=== PATIENT | male | born 1955 | race Caucasian/White ===

== ENCOUNTER 2019-07-12 08:26 | Outpatient (CLI) | payer MEDICARE, SELFPAY ==
--- NOTE | ~2019-07-12 | CT_ITS ---
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 The dose-length product (DLP) was 528.27 mGy-cm. Automated exposure control and iterative reconstruction technique were employed. COMPARISON: 03/19/2019 FINDINGS: CHEST CT: There is moderate emphysema. The lungs are free of acute opacities. There is no pleural effusion or t horax. Mild dependent atelectasis is noted. Calcified pulmonary nodules are consistent with old granu lomatous disease. A right internal jugular Port-A-Cath has been inserted which ends with its tip in t he distal superior vena cava. No pathologically enlarged thoracic lymph nodes are identified. The hea rt size is normal. There is no pleural effusion or pneumothorax. ABDOMEN/PELVIS CT: There is persistent but improved wall thickening of the distal esophagus. Multiple liver metastases a re present which demonstrates slight decrease in size. Gastrohepatic ligament lymphadenopathy has als o improved. For instance, a 1.7 x 1.8 cm lymph node previously measured 2.8 x 2.3 cm. Punctate calcif ications in an otherwise normal spleen likely represent healed granulomatous disease. The pancreas, g allbladder, and adrenal glands are normal. The right kidney is unremarkable. There is scarring in the posterior aspect of the left kidney. There is calcified atherosclerosis of the aorta and many of the other arteries. There is no free intraperitoneal gas or evidence of bowel obstruction. Colonic diver ticulosis is present without evidence of diverticulitis. There is calcified atherosclerosis of the ao rta and many of the other arteries. No persistent thickening is identified in the proximal descending colon in the area questioned on prior examination. There are changes of posterior fusion at L3-4. IMPRESSION: 1. Interval response to therapy as evidenced by decrease in wall thickening of the distal esophagus, decrease in size of multiple liver metastases, and decrease in gastrohepatic ligament lymphadenopathy . 2. No thoracic metastatic disease identified. 3. Moderate emphysema. Reviewed, dictated and finalized at location A. GUMMER IMPRESSION: 1. Interval response to therapy as evidenced by decrease in wall thickening of the distal esophagus, decrease in size of multiple liver metastases, and decrea se in gastrohepatic ligament lymphadenopathy. 2. No thoracic metastatic disease identified. 3. Moderate emphysema.
== END 2019-07-12 08:27 | disposition home or self-care (01) ==
LOC: ANHIMG 08:31
PROVIDERS: Visit Provider Internal Medicine Hematology & Oncology
DX: C15.5 Malignant neoplasm of lower third of esophagus (principal); J43.9 Emphysema, unspecified
CPT/HCPCS: 71260; 74177; Q9967

== ENCOUNTER 2019-10-24 08:26 | Outpatient (CLI) | payer MEDICARE, SELFPAY ==
--- NOTE | ~2019-10-24 | CT_ITS ---
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 with 100 mL Omn ipaque-350 intravenous contrast. The dose-length product was 502.61 mGy-cm. COMPARISON: 07/12/2019 FINDINGS: CHEST CT: Moderate emphysema. There are couple calcified nodules in the left lung consistent with old granuloma tous disease. No suspicious pulmonary nodules, pneumonia, pulmonary edema or pleural effusion. Heart size is normal. No pericardial effusion. Atherosclerotic coronary artery calcifications. Thoracic aor ta is normal caliber with no dissection. Right internal jugular central venous port catheter with dis william tip at the superior cavoatrial junction. No pathologically enlarged thoracic lymphadenopathy. Unc hanged mild wall thickening in the distalmost esophagus which appears decreased since study dated 03/19/2019 likely representing response to treatment of reported esophageal neoplasm. Mild to moderate th oracic spondylosis with chronic mild anterior wedging at T7 and T11. No suspicious lytic or blastic b one lesions. ABDOMEN/PELVIS CT: Again seen are multiple hypoenhancing lesions scattered throughout the liver, many with peripheral hy perenhancing rims. Those lesions present on the prior study appear generally decreased in size. For r eference a 4.8 cm lesion in the right hepatic lobe has decreased to 3.9 cm and a 3.9 cm lesion in seg ment 4A of the left hepatic lobe has decreased to 2.9 cm. There has however been significant increase in number of lesions with multiple new smaller lesions. A few tiny calcified gallstones in the depen dent aspect of the normal-appearing gallbladder. No intra or extrahepatic biliary ductal dilation. Nu merous splenic calcifications consistent with old granulomatous disease. Pancreas, bilateral adrenal glands and right kidney are normal. Small region of cortical scarring at the posterior interpolar reg ion of the left kidney. Interval decrease in size of a previously 2.1, currently 1.7 cm enhancing and likely metastatic gastrohepatic lymph node. No other pathologically enlarged abdominal or pelvic lym phadenopathy. There is prominent colonic diverticulosis with a sigmoid predominance. There is no adj acent inflammatory change to suggest diverticulitis. Small bowel and appendix are normal. Bladder is normal. Mild prostatomegaly. No free intraperitoneal gas or fluid. L3 and L4 laminectomies and poste rior spinal fusion with bilateral vertical kurt and pedicle screw fixations. No suspicious lytic or bl astic bone lesions. IMPRESSION: 1. Mixed response to therapy with decrease in size of multiple liver metastases and decreased size of a likely metastatic gastrohepatic lymph node but with multiple new smaller likely metastatic hepatic lesions. 2. Unchanged mild wall thickening at the distal esophagus which is decreased since earlier study date d 03/19/2019 consistent with response to treatment of likely primary reported esophageal cancer. 3. Moderate emphysema. 4. Diverticulosis. Reviewed, dictated and finalized at location A. IMPRESSION: 1. Mixed response to therapy with decrease in size of multiple liver metastases and decreased size of a likely metastatic gastrohepatic lymph node but with mu ltiple new smaller likely metastatic hepatic lesions. 2. Unchanged mild wall thickening at the distal esophagus which is decreased si nce earlier study dated 03/19/2019 consistent with response to treatment of like ly primary reported esophageal cancer. 3. Moderate emphysema. 4. Diverticulosis.
== END 2019-10-24 08:27 | disposition home or self-care (01) ==
PROVIDERS: PCP Internal Medicine; Visit Provider Internal Medicine Hematology & Oncology
DX: C15.5 Malignant neoplasm of lower third of esophagus (principal); J43.9 Emphysema, unspecified; K57.90 Diverticulosis of intestine, part unspecified, without perforation or abscess without bleeding
CPT/HCPCS: 71260; 74177; Q9967

== ENCOUNTER 2020-01-08 11:14 | Outpatient (CLI) | payer MEDICARE, SELFPAY ==
--- NOTE | ~2020-01-08 | US_ITS ---
EXAMINATION: US venous doppler LE RT EXAM DATE: 01/08/2020 11:37 INDICATION: Right leg swelling. TECHNIQUE: Multiple grayscale, color flow and Doppler images of the right lower extremity deep venous system obtained and reviewed. There is no prior study for comparison. FINDINGS: RIGHT SIDE Common femoral: --------Thrombosed. Profunda femoral: ------- Normal. Femoral: Thrombosed. Popliteal: Thrombosed. Posterior tibial: ---------Thrombosed. Peroneal: Thrombosed. Gastrocnemius: Thrombosed. Soleus: Not visualized. Greater saphenous: ----- Normal. Lesser saphenous: ------ Not visualized. IMPRESSION: Extensive right lower extremity DVT. I discussed positive finding with jose Riley in the office of the ordering clinician Vee Giraldo MD at 01/08/2020 11:44 CDT. Reviewed, dictated and finalized at location A. IMPRESSION: Extensive right lower extremity DVT. I discussed positive finding with jose Riley in the office of the or dering clinician Sam Giraldo MD at 01/08/2020 11:44 CDT.
== END 2020-01-08 11:15 | disposition home or self-care (01) ==
PROVIDERS: PCP Internal Medicine; Visit Provider Internal Medicine
DX: I82.401 Acute embolism and thrombosis of unspecified deep veins of right lower extremity (principal); M79.89 Other specified soft tissue disorders; C15.9 Malignant neoplasm of esophagus, unspecified
CPT/HCPCS: 93971

== ENCOUNTER 2020-01-26 08:34 | Outpatient (CLI) | payer MEDICARE, SELFPAY ==
--- NOTE | ~2020-01-26 | CT_ITS ---
EXAMINATION: CT chest abdomen pelvis w con DATE: 01/26/2020 09:10 INDICATION: Carcinoma of distal third of esophagus; restaging TECHNIQUE: Computed tomography (CT) of the chest, abdomen, and pelvis was performed with 100 cc Omnip aque 350 intravenous contrast. Automated exposure control and iterative reconstruction technique were employed. Exam dose: 405.11 mGy-cm total exam DLP. COMPARISON: 11/03/2019 CT chest abdomen pelvis FINDINGS: CHEST CT: Right Port-A-Cath catheter tip at superior cavoatrial junction. Normal size and homogeneous enhancement of the thyroid gland. 4 x 6.5 mm lymph node adjacent to the distal lateral esophagus (series 3 image 76). Additional small lymph nodes are noted along the posterior aspect of the lower half of the esophagus. Up to 11 x 17 mm metastatic nodule is noted at the lower right anterior pericardial margin. No hilar or mediastinal mass lesion or lymphadenopathy is detected otherwise.. No thoracic aortic aneurysm or dissection. Normal heart size. No pericardial or pleural effusion. Moderate emphysema. No pulmonary infiltrate or consolidation or pulmonary mass lesion is evident. ABDOMEN/PELVIS CT: There is extensive metastatic disease of the left and right hepatic lobes and caudate process, signif icantly increased compared to . A gastrohepatic ligament node currently measures 18.5 x 23.5 mm compared to approximately 15.7 x 18.4 mm on 07/12/2019.Additional new metastatic lymphadenopathy is noted in this region is mildly increase d aortocaval lymphadenopathy. The gallbladder is present. No bile duct dilatation. No pancreatic mass lesion, calcification or panc reatic duct dilatation. There are multiple calcified splenic granulomas. Normal splenic size. Adrenal glands are unremarkable. No renal mass lesion. No urinary tract calculus or hydroureteronephrosis. T he urinary bladder is unremarkable in appearance is prostate enlargement and calcification. There is atherosclerotic calcification and tortuosity but normal caliber of the abdominal aorta. Calc ified iliac and femoral arteries. Right common iliac artery measures up to 1.6 cm diameter. No pelvic mass lesion or adenopathy. There is a small amount of fluid in the dependent pelvis. There is diverticulosis of the colon; no CT evidence of diverticulitis. A prominent of fecal material within the colon. No bowel obstruction, bowel wall thickening, pneumatosis or intraperitoneal free a ir is evident. Normal appendix. Very small fat-containing left inguinal hernia. Right-sided pedicle screws are noted at L3 and L4. There are degenerative changes of the thoracic and lumbar spine as well as cervical spine. No suspici ous osteoblastic or osteolytic lesions are noted. IMPRESSION: Prominently increased hepatic metastatic disease since 11/03/2019 Mild increased metastatic adenopathy is suggested along the lower esophagus and in the gastrohepatic and aortocaval area since 11/03/2019 Reviewed, dictated and finalized at Location A. Reviewed, dictated and finalized at location A.
== END 2020-01-26 08:35 | disposition home or self-care (01) ==
LOC: ANHIMG 08:37
PROVIDERS: PCP Internal Medicine; Visit Provider Internal Medicine Hematology & Oncology
DX: C15.5 Malignant neoplasm of lower third of esophagus (principal); C78.7 Secondary malignant neoplasm of liver and intrahepatic bile duct
CPT/HCPCS: 71260; 74177; Q9967

== ENCOUNTER 2020-02-07 13:36 | Inpatient (IN) | payer MEDICARE, SELFPAY ==
[2020-02-07] VITALS (15 sets, daily range): BP systolic 74–140; BP diastolic 53–97; PULSE 54–101; RESP 13–19; TEMP 36.3–36.7; O2SAT 88–99; BMI 25.2
--- NOTE | ~2020-02-07 | CT_ITS ---
EXAMINATION: CT brain wo con EXAM DATE: 02/07/2020 16:12 INDICATION: Weakness. Fatigue, history esophageal cancer. TECHNIQUE: Spiral CT of the head was performed without contrast. Axial, coronal and sagittal images were reviewed. The dose-length product (DLP) for this examination was 605.33 mGy-cm. The exposure w as tailored according to patient size, and iterative reconstruction (ASIR) was used as additional dos e reduction technique. There is no prior study for comparison. FINDINGS: There is no acute intraparenchymal hemorrhage. No evidence of intraparenchymal brain mass lesion. No evidence of acute infarction. Please note that initial head CT has limited sensitivity f or small or acute infarctions. There is mild periventricular and subcortical hypodensity, nonspecific but probably related to small vessel ischemic disease. There is mild prominence of the sulci and v entricles related to cerebral atrophy. There is intracranial carotid arteriosclerosis. There are n o extra-axial collections. There is no mass effect or midline shift. The orbits are unremarkable. Soft tissue is unremarkable. The visualized sinuses and mastoid air cells are well aerated. IMPRESSION: 1. No acute intracranial findings. 2. Chronic age related findings. Reviewed, dictated and finalized at location B.
--- NOTE | ~2020-02-07 | CT_ITS ---
EXAMINATION: CT abdomen pelvis w con INDICATION: Right-sided abdominal pain, history of esophageal cancer TECHNIQUE: Computed tomographic images of the abdomen and pelvis were obtained after the administrati on of 100 cc of Omnipaque 350 intravenous contrast. The dose-length product (DLP) was 440.21 mGy-cm. Automated exposure control and iterative reconstruction technique were employed. COMPARISON: 01/26/2020 FINDINGS: Minimal dependent atelectasis is present in the lung bases. The heart size is normal. The t ip of the Port-A-Cath ends in the proximal right atrium. There is mild thickening of the distal esoph shayla. There are multiple large and confluent hepatic metastases primarily involving the right hepatic lobe and liver segment IV which do not demonstrate significant interval change. Pathologically enlar ged gastrohepatic ligament lymph nodes are also stable. Periportal, aortocaval, and left perinephric lymphadenopathy is also stable. Punctate calcifications in an otherwise normal spleen likely represen t healed granulomatous disease. The pancreas, gallbladder, and adrenal glands are normal. The right k idney is unremarkable. Again noted is cortical scarring of the otherwise normal-appearing left kidney . There is calcified atherosclerosis of the aorta and many of the other arteries. There is no free in traperitoneal gas or evidence of bowel obstruction. Colonic diverticulosis is present without evidenc e of diverticulitis. IMPRESSION: 1. No CT correlate for the patient's symptoms. 2. Stable hepatic masses and upper abdominal lymphadenopathy, consistent with metastatic disease. Reviewed, dictated and finalized at location A. IMPRESSION: 1. No CT correlate for the patient's symptoms. 2. Stable hepatic masses and upper abdominal lymphadenopathy, consistent with m etastatic disease.
--- NOTE | ~2020-02-07 | XR_ITS ---
XR chest 1V portable 02/07/2020 14:58 Indication: Hypotension and weakness. Fatigue. Procedure: AP portable chest Comparison: 04/21/2019 Findings: Portacatheter tip in the SVC. Heart size normal. No focal air space disease, pulmonary ghazal a, pleural effusion or suspected pneumothorax. No acute osseous abnormality. Impression: 1: No acute cardiopulmonary disease. Reviewed, dictated and finalized at location A. Impression: 1: No acute cardiopulmonary disease.
--- NOTE | 2020-02-07 13:52 | ED.WEAKNESS ---
HPI - Weakness General Chief complaint: Weakness Stated complaint: low BP Time Seen by Provider: 02/07/20 13:52 Source: patient and family Mode of arrival: wheelchair Limitations: no limitations History of Present Illness HPI Narrative: Patient is a 64-year-old male with a history of stage IV esophageal cancer who presents from chemotherapy treatment for evaluation of hypotension. Patient has been feeling weak and unwell over the past 15 hours. Patient was in usual state of health yesterday, when suddenly he began to feel weak over the course of last night into today. Patient was found to be hypotensive at his chemotherapy session and was referred here for evaluation. He denies any chest pain, cough or shortness of breath. He reports right-sided abdominal pain without vomiting. He reports mild nausea. No dysuria or hematuria. He denies fever or chills. He denies diarrhea or constipation. He denies recent sick contacts. He denies rhinorrhea or congestion. Related Data Home Medications Medication Instructions Recorded Confirmed Aleve PM 2 tablet PO HS 03/29/19 02/07/20 docusate sodium [Colace] 100 mg PO DAILY 03/29/19 02/07/20 prochlorperazine maleate 10 mg PO Q6H PRN 01/03/20 02/07/20 [Compazine] apixaban [Eliquis] 5 mg PO BID 01/15/20 02/07/20 diphenoxylate-atropine [Lomotil] 1 tablet PO TID 02/05/20 02/07/20 megestrol 400 mg PO DAILY 02/05/20 02/07/20 Allergies Allergy/AdvReac Type Severity Reaction Status Date / Time No Known Allergies Allergy Verified 01/01/20 10:01 Review of Systems Review of Systems: Narrative: CONSTITUTIONAL: Denies fever, chills EYES: Denies visual changes ENT: Denies rhinorrhea, congestion, sore throat, or otalgia. CARDIOVASCULAR: Denies chest pain, palpitations RESPIRATORY: Denies cough or dyspnea. GASTROINTESTINAL: Reports abdominal pain, nausea without vomiting GENITOURINARY: Denies dysuria or hematuria. SKIN: Denies rash or itching. MUSCULOSKELETAL: Denies back pain, joint pain, or myalgia. NEUROLOGIC: Denies headache, numbness, reports feeling diffusely weak PMFSH Past Medical History Medical History Anorexia Colon stricture Dysphagia Esophageal cancer, stage IV Liver metastases Weight loss Social History Social History Smoking status: Current every day smoker Tobacco type: e-cigarettes/vaping Gender identity (if verbalized by the patient): Male Spiritual care concerns: No Exam Narrative: Exam Narrative: GENERAL: Awake, alert, chronically ill-appearing HEAD: Normocephalic, atraumatic. EYES: PERRLA and EOMI. ENT: Nares clear, no rhinorrhea or epistaxis. Mucous membranes dry NECK: Supple. CHEST: No respiratory distress, breathing even and non labored, right chest port HEART: Regular rate, sinus rhythm ABDOMEN:Non distended, mild tenderness in the right upper quadrant, mild guarding, no rebound, nonrigid EXTREMITIES: Normal range of motion. No edema. SKIN: Warm, dry, no rash. NEURO:No focal deficits. Alert and oriented x3 Course Vital Signs Vital signs: Vital Signs Temperature 36.7 C 02/07/20 13:46 Pulse Rate 72 02/07/20 13:46 Respiratory Rate 17 02/07/20 13:46 Blood Pressure 77/62 L 02/07/20 13:46 Pulse Oximetry 98 02/07/20 13:46 Temperature 36.7 C 02/07/20 13:46 Pulse Rate 86 02/07/20 16:54 Respiratory Rate 13 02/07/20 16:46 Blood Pressure 129/87 02/07/20 16:54 Pulse Oximetry 96 02/07/20 16:46 MDM - Weakness MDM Narrative Medical decision making narrative: Patient presented for evaluation of hypotension and weakness. At the time of initial assessment, ABCs are intact, patient is hypotensive, afebrile. Patient with mild abdominal pain on exam, otherwise denying any respiratory or urinary type symptoms. No strokelike symptoms or neurological deficits at the time of assessment. Laboratory results notable
--- NOTE | 2020-02-07 13:53 | ECG_ITS ---
Measurements Intervals [place] Rate: 55 P: 30 MS: 144 QRS: 12 QRSD: 101 T: 11 QT: 424 QTc: 408 Interpretive Statements SINUS BRADYCARDIA BASELINE ARTIFACT- I, III, AVL BORDERLINE ECG Electronically Signed On 02-07-2020 15:31:15 CDT by Abundio Walker D.O.
[2020-02-07 14:15] LABS: Basophils Percent Auto 0.1 % (0.2-1.2); Eosinophils Percent Auto 0.1 % (0-4.4); Hematocrit 32.6 % (42.0-52.0); Hemoglobin 10.5 g/dL (14.0-18.0); Lymphocytes Absolute Auto 2.26 K/mm3 (0.9-3.2); Lymphocytes Percent Auto 11.7 % (18.3-44.2); Mean Corpuscular HGB Conc 32.2 g/dl (32-36); Mean Corpuscular Volume 96.2 fl (80-100); Mean Platelet Volume 11.5 fl (7.4-10.4); Monocytes Absolute Auto 0.8 K/mm3 (0.1-0.6); Monocytes Percent Auto 4.2 % (2.6-8.5); Neutrophils Percent Auto 82.9 % (45.5-73.1); Platelet Count Result 395 k/mm3 (150-375); Red Blood Count 3.39 M/mm3 (4.6-6.20); Red Cell Distribution Width 19.1 % (11.5-14.5); White Blood Count 19.3 K/mm3 (4.5-10.0)
[2020-02-07] MEDS: SODIUM CHLORIDE 0.9% IV 2,200 ML/1,000 ML BAG 999 ML IV CONT ×3 (14:18→17:01)
[2020-02-07 14:25] LABS: INR 1.5; Prothrombin Time 17.8 Seconds (11.1-14.7)
[2020-02-07 14:26] LABS: Lactic Acid Reflex 1.7 mmol/L (0.7-2.1)
[2020-02-07 14:29] LABS: CRP 6.9 mg/dL (<1.0)
[2020-02-07 14:33] LABS: Alanine Aminotransferase 40 U/L (4-50); Albumin Level 2.9 g/dL (3.5-5.1); Alkaline Phosphatase 345 U/L (38-126); Anion Gap 5 mmol/L (8-16); Aspartate Amino Transferase 136 U/L (17-59); Blood Urea Nitrogen 29 mg/dL (9-20); Carbon Dioxide 27 mmol/L (22-30); Chloride 105 mmol/L (98-107); Estimated CRCL calculation 75 ml/min; Estimated Glomerular Filt Rate > 60; Glucose 105 mg/dL (75-110); Potassium 4.7 mmol/L (3.4-5.0); Sodium 137 mmol/L (137-145)
[2020-02-07 14:39] LABS: Troponin I < 0.012 ng/mL (0.000-0.034)
[2020-02-07 14:39] LABS: Partial Thromboplastin Time 28.9 SECONDS (22.3-36.8)
[2020-02-07] MEDS: NOREPINEPHRINE 8 MG/D5W 250 ML 8 MG/250 ML BAG 9.4 MG IV CONT ×2 (15:48→22:15)
[2020-02-07 16:00] LABS: Add Urine Microscopic? YES; Appearance Urine Clear (Clear); Bilirubin Urine Negative (Negative); Blood Urine Negative (Negative); Color Urine Yellow (Yellow); Glucose Urine UA Negative (Negative); Ketones Urine Negative (Negative); Leukocyte Esterase Ur Negative LEU/UL (Negative); Mucus Urine Rare /lpf; Nitrate Urine Negative (Negative); Protein Urine Negative (Negative); RBC Urine 0-2 /hpf (0-2); Specific Grav Ur 1.014 (1.001-1.035); WBC Urine 0-3 /hpf
[2020-02-07] MEDS: LACTATED RINGERS 1,000 ML 125 ML IV CONT (19:00)
--- NOTE | 2020-02-07 19:03 | ADMGEN ---
This patient, Waqas Douglas, was admitted to Intensive Care Unit-10. Patient/family oriented to hospital policies and general routines including ID bracelet, bed and alarms, visiting hours, pain management, procedures, bathroom and other care routines, personal items, smoking policy, room service/diet, and visiting hours. Valuables list has been completed. Information on how to activate the Rapid Response Team has been discussed. Patient/Family are encouraged to report perceived risks to care and to ask questions if they do not understand what they are told or what they should do.
--- NOTE | 2020-02-07 19:30 | PM.IMHP ---
H&P: HPI History of Present Illness Date/Time: 02/07/20 19:30 <Dina Alcala PA-C - Last Filed: 02/07/20 20:19> Chief complaint: Weakness, low blood pressure. <Dina Alcala PA-C - Last Filed: 02/07/20 20:19> Narrative: Waqas Douglas is with a pleasant 64-year-old male currently undergoing treatment for stage IV esophageal cancer with metastatic disease to the liver who presented to the emergency department earlier this afternoon from Dr. Upton office for evaluation of weakness and hypotension. It sounds as though he receives continuous chemotherapy via infusion, which is started on Mondays and discontinued on Wednesdays. He went into the office today to have that discontinued, and at that time he was found to be quite hypotensive. With further questioning he has felt fair the past couple of days but does mention getting lightheaded quite often, mainly when bending over and with position changes. His appetite has also not been very good with some nausea, mild right side discomfort, and decreased oral intake. The discomfort in his right side is more of an ache, is intermittent, and seems to be an issue that has been occurring for quite some time. He has rhinorrhea which he believes to be a side effect of his chemotherapy and he also has an occasional cough which is very rarely productive of clear phlegm, which is attributed to the rhinorrhea and postnasal drip. He has not had diarrhea and in fact tends to have constipation. No dysuria, urgency, or urinary hesitancy. He has not had sinus congestion, otalgia, or odynophagia. Occasional dysphagia but he denies concerns for aspiration. No vomiting. No sick contacts. <Dina Alcala PA-C - Last Filed: 02/07/20 20:19> Review of Systems Review of Systems: Narrative: Twelve systems were reviewed with pertinent positives and negatives as per HPI. Except as documented, all other systems were reviewed and are negative. <Dina Alcala PA-C - Last Filed: 02/07/20 20:19> [facility] Past Medical History Medical History: Medical History (Updated 02/07/20 @ 20:06 by Dina Alcala PA-C) Anemia Colon polyps Colon stricture Depression Dysphagia Secondary to esophageal cancer. Esophageal cancer, stage IV (~03/2019) With metastatic disease to the liver. Receiving chemotherapy per Dr. Upton. Gastroesophageal reflux disease History of nicotine use Right leg DVT On apixaban as of 02/07/2020. 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 <Dina Alcala PA-C - Last Filed: 02/07/20 20:19> Surgical History Surgical History: Surgical History (Updated 02/07/20 @ 19:50 by Dina Alcala PA-C) History of lumbar surgery <Dina Alcala PA-C - Last Filed: 02/07/20 20:19> Family History Family History: Family History (Updated 02/07/20 @ 19:52 by Dina Alcala PA-C) Father Brain aneurysm Sibling Lung cancer <Dina Alcala PA-C - Last Filed: 02/07/20 20:19> Social History Social History: Social History (Updated 02/07/20 @ 20:00 by Dina Alcala PA-C) Social History: The patient is and lives with his and grandson in [place]. Together they have 7 children. He is retired. He smoked a pack of cigarettes per day and quit about 4 years ago. Instead he uses E cigarettes. He denies alcohol use. He uses medical THC. His is his surrogate decision maker and he wishes to be a full code. Smoking status: Current every day smoker Tobacco type: e-cigarettes/vaping Alcohol intake: never Substance use: current Other substance usage details: THC Gender identity (if verbalized by the patient): Male Spiritual care concerns: No <Dina Alcala PA-C - Last Filed: 02/07/20 20:19> Meds Home Medications and Allergies Home medications: Home Medications Medication Instructions Recorded
[2020-02-07] MEDS: PREGABALIN (*CRX) 75 MG CAPSULE PO (21:46)
[2020-02-08] VITALS (17 sets, daily range): BP systolic 88–118; BP diastolic 45–78; PULSE 72–105; RESP 14–26; TEMP 36.2–36.8; O2SAT 94–98
[2020-02-08 04:30] LABS: Basophils Percent Auto 0.1 % (0.2-1.2); Eosinophils Percent Auto 0.1 % (0-4.4); Hematocrit 32.7 % (42.0-52.0); Hemoglobin 10.6 g/dL (14.0-18.0); Immature Granulocyte Absolute 0.21 K/mm3 (0.00-0.031); Lymphocytes Absolute Auto 2.85 K/mm3 (0.9-3.2); Lymphocytes Percent Auto 13.7 % (18.3-44.2); Mean Corpuscular HGB Conc 32.4 g/dl (32-36); Mean Corpuscular Hemoglobin 30.6 pg (26-34); Mean Corpuscular Volume 94.5 fl (80-100); Mean Platelet Volume 10.9 fl (7.4-10.4); Monocytes Absolute Auto 0.4 K/mm3 (0.1-0.6); Monocytes Percent Auto 1.9 % (2.6-8.5); Neutrophils Absolute Auto 17.3 K/mm3 (1.3-6.7); Neutrophils Percent Auto 83.2 % (45.5-73.1); Platelet Count Result 407 k/mm3 (150-375); Red Blood Count 3.46 M/mm3 (4.6-6.20); Red Cell Distribution Width 19.4 % (11.5-14.5); White Blood Count 20.8 K/mm3 (4.5-10.0)
[2020-02-08 04:46] LABS: Lactic Acid Reflex 1.7 mmol/L (0.7-2.1)
[2020-02-08 04:47] LABS: Alanine Aminotransferase 44 U/L (4-50); Albumin Level 2.8 g/dL (3.5-5.1); Alkaline Phosphatase 350 U/L (38-126); Anion Gap 3 mmol/L (8-16); Aspartate Amino Transferase 198 U/L (17-59); Blood Urea Nitrogen 23 mg/dL (9-20); Calcium 8.8 mg/dL (8.4-10.2); Carbon Dioxide 27 mmol/L (22-30); Chloride 106 mmol/L (98-107); Estimated CRCL calculation 75 ml/min; Estimated Glomerular Filt Rate > 60; Glucose 105 mg/dL (75-110); Magnesium 2.7 mg/dL (1.6-2.3); Potassium 4.6 mmol/L (3.4-5.0); Sodium 136 mmol/L (137-145)
[2020-02-08] MEDS: LACTATED RINGERS 1,000 ML 75 ML IV CONT ×2 (06:33→20:27)
[2020-02-08] MEDS: PANTOPRAZOLE 40 MG TABLET PO (09:25)
[2020-02-08] MEDS: POTASSIUM CHLORIDE 20 MEQ TABLET.ER PO (09:25)
[2020-02-08] MEDS: APIXABAN 5 MG TABLET PO ×2 (09:25→17:08)
[2020-02-08] MEDS: DOCUSATE SODIUM 100 MG CAPSULE PO (09:25)
[2020-02-08] MEDS: MEGESTROL ACETATE (*CHEMO) ORAL SUSP 40 MG/ML SYR 400 MG PO (09:25)
[2020-02-08] MEDS: PREGABALIN (*CRX) 75 MG CAPSULE PO ×2 (09:25→20:29)
--- NOTE | 2020-02-08 12:28 | WPDCNINT ---
Assessment and Plan Assessment and plan (1) Septic shock: Code(s): A41.9 - Sepsis, unspecified organism; R65.21 - Severe sepsis with septic shock Status: Acute Assessment and Plan: septic shock, unknown etiology. - On Levophed. Maintain MAP > 65 mmHg - continue cefepime and Vancomycin - cultures have been obtained and pending - CT abdomen/pelvis shows stable liver metastases. Urinalysis is not consistent with a UTI.CXR with no acute cardiopulmonary disease (2) Esophageal cancer, stage IV: Onset Date: ~03/2019 Code(s): C15.9 - Malignant neoplasm of esophagus, unspecified Status: Acute Assessment and Plan: patient with history of esophageal cancer with Mets to the liver -follows with Dr. Upton (3) Anemia: Code(s): D64.9 - Anemia, unspecified Status: Acute Assessment and Plan: anemia likely related to chemotherapy/ malignancy/ anemia of chronic disease - hemoglobin stable at this time, will continue to monitor (4) Protein calorie malnutrition: Code(s): E46 - Unspecified protein-calorie malnutrition Status: Acute Assessment and Plan: protein calorie malnutrition likely due to decrease in oral intake secondary esophageal cancer - will have dietitian / assistant secretary evaluate the patient Additional Plan discussed with patient at length and updated with his condition plan of care. I answered all questions code status: Full code critical care time spent: 41 minutes Due to a high probability of clinically significant, life threatening deterioration, the patient required my highest level of preparedness to intervene emergently and I personally spent this critical care time directly and personally managing the patient. This critical care time included obtaining a history; examining the patient; pulse oximetry; ordering and review of studies; arranging urgent treatment with development of a management plan; evaluation of patient's response to treatment; frequent reassessment; and discussions with other providers. It was exclusive of separately billable procedures and treating other patients and teaching time. Please see Assessment and Plan section and the rest of the note for further information on patient assessment and treatment [employer] Consult Note Consult date: 02/08/20 Time Seen: 07:19 Reason for consult: septic shock HPI: Waqas Douglas is a 64 year old male and past medical history of esophageal cancer with liver metastases, dysphagia, anorexia, weight loss presented the ED from chemotherapy treatment for evaluation of hypotension. Pt has also been feeling weak for a couple of days, lightheaded, nausea, decreased PO intake. mild cough with rginorrhea and postnasal drip. Pt has not been in contact with anybody who is sick. Pt was hypotensive in the ED, received 30 ml/kg fluid bolus, started on Cefepime and vancomycin. Pt was also started on levophed. CT abdomen/pelvis shows stable liver metastases. Urinalysis is not consistent with a UTI.CXR with no acute cardiopulmonary disease. Pt was transferred to the ICU for further management Pt seen and examined in the ICU. Pt is awake, alert and oriented x3, answers to questions appropriately. On Levophed 3 mcg/min. Denies any SOB, chest pain, nausea, vomiting. Pt tolerating PO diet. Review of Systems Review of Systems: All systems reviewed & are unremarkable except as noted in HPI and below PMFSH Past Medical History Medical History (Updated 02/07/20 @ 20:06 by Dina Alcala PA-C) Anemia Colon polyps Colon stricture Depression Dysphagia Secondary to esophageal cancer. Esophageal cancer, stage IV (~03/2019) With metastatic disease to the liver. Receiving chemotherapy per Dr. Upton. Gastroesophageal reflux disease History of nicotine use Right leg DVT On apixaban as of 02/07/2020. Streptococcal septicemia Secondary to spinal infection, requiring temporary dialysis decade
[2020-02-08] MEDS: CENTRAL LINE FLUSH 10 ML IV PUSH ×2 (14:03→22:31)
--- NOTE | 2020-02-08 16:06 | PM.IMPN ---
Progress Note: A&P Assessment and Plan (1) Septic shock: Code(s): A41.9 - Sepsis, unspecified organism; R65.21 - Severe sepsis with septic shock Status: Acute Assessment and Plan: 02/08/20 16:06 patient is 64-year-old male with history of esophageal cancer patient had been at his oncologist office and received chemotherapy, it was noticed that patient blood pressure was low and he was sent to emergency department for further evaluation, upon arrival to emergency depart patient was hypotensive, had been complaint of poor appetite, fatigue weakness and tired, however patient does not have any associated symptoms of abdominal pain nausea or vomiting fever or chills, in the emergency department patient he was hydrated with 30ml/kg fluid bolus, suspect the patient may septic shock he has been started on cefepime and vancomycin, blood culture have been ordered, currently patient is eating his lunch, states feeling little better denies any abdominal pain nausea or vomiting fever or chills, his is present in the room, discussed with paintings restorer etiology for septic shock is not clear workup is in progress and further recommendation to follow (2) Esophageal cancer, stage IV: Onset Date: ~03/2019 Code(s): C15.9 - Malignant neoplasm of esophagus, unspecified Status: Acute Assessment and Plan: patient seen by oncology and receiving chemotherapy he will be seen by oncologist and further recommendation to follow (3) Anemia: Code(s): D64.9 - Anemia, unspecified Status: Acute Assessment and Plan: most likely secondary to chemotherapy will continue to monitor (4) Dehydration: Code(s): E86.0 - Dehydration Status: Acute Assessment and Plan: patient is being hydrated will continue to monitor kidney function (5) Protein calorie malnutrition: Code(s): E46 - Unspecified protein-calorie malnutrition Status: Acute Assessment and Plan: patient will benefit from dietary consult Subjective Date/time seen: 02/08/20 16:06 patient is 64-year-old male with history of esophageal cancer patient had been at his oncologist office and received chemotherapy, it was noticed that patient blood pressure was low and he was sent to emergency department for further evaluation, upon arrival to emergency depart patient was hypotensive, had been complaint of poor appetite, fatigue weakness and tired, however patient does not have any associated symptoms of abdominal pain nausea or vomiting fever or chills, in the emergency department patient he was hydrated with 30ml/kg fluid bolus, suspect the patient may septic shock he has been started on cefepime and vancomycin, blood culture have been ordered, currently patient is eating his lunch, states feeling little better denies any abdominal pain nausea or vomiting fever or chills, his is present in the room, discussed with paintings restorer etiology for septic shock is not clear workup is in progress and further recommendation to follow Review of Systems Review of Systems: All systems reviewed & are unremarkable except as noted in HPI and below Exam Narrative: Exam Narrative: appears chronically ill malnourished Const: General: no acute distress and uncomfortable HENMT: General nose exam: Normal nares present Eyes: Sclera: sclerae normal Neck: Neck: supple Resp: Effort & Inspection: normal respiratory effort Auscultation: clear to auscultation bilaterally Cardio: Rate: regular rate Rhythm: regular rhythm GI: Auscultation: normal bowel sounds Skin: General skin exam: normal color Neuro: Speech: normal speech Sensory Exam: normal sensation Extrem: General: normal to inspection Psych: Affect: Anxious affect present Objective Data Vital Signs Vital Signs: Vital Signs - 24 hr 02/07/20 16:21 02/07/20 16:31 02/07/20 16:46 Temperature Pulse Rate 54 L 67 88 Respiratory Rate 19 13 Blo
--- NOTE | 2020-02-08 17:31 | PDONCCN ---
[facility] - Date of Consult Date/Time: 02/08/20 17:31 Requesting Physician: Romain Vazquez MD Primary Care Provider: Sam Giraldo MD - Consult Narrative Reason for consult: Metastatic esophageal cancer Narrative: Waqas Douglas is a 64 year old male This is a 64-year-old unfortunate male who was diagnosed with metastatic esophageal cancer status post EGD and biopsy done on March 30, 2019. He was found to have multiple liver and pulmonary metastasis on the PET scan. He received initial chemotherapy with FOLFOX regimen completed cycle 12 in September 2019. He was then started on maintenance 5 FU leucovorin. Due to progressive disease on the CT scan done he was started on FOLFIRI regimen. He was admitted from the office when he came back for removal of the infusional 5 FU pump and found to be quite lethargic as well as hypotensive. He denies any fever but does have some chills. He denies any cough and burning in urine. He was sent to the ER with from where he was admitted with sepsis and hypotension. He is feeling slightly better today but remains quite lethargic. He denies any bleeding. He has been eating poorly. Review of Systems - Review of Systems All systems reviewed & are unremarkable except as noted in [facility] and [facility] Medical History: Medical History (Last Updated 02/07/20 @ 20:01 by Dina Alcala PA-C) Anemia Colon polyps Colon stricture Depression Dysphagia Secondary to esophageal cancer. Esophageal cancer, stage IV Onset Date: ~03/2019 With metastatic disease to the liver. Receiving chemotherapy per Dr. Upton. Gastroesophageal reflux disease History of nicotine use Right leg DVT On apixaban as of 02/07/2020. 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 Surgical History: Surgical History (Last Updated 02/07/20 @ 19:50 by Dina Alcala PA-C) History of lumbar surgery Family History: Family History (Last Updated 02/07/20 @ 19:52 by Dina Alcala PA-C) Father Brain aneurysm Sibling Lung cancer - Social History Social History: Social History (Last Updated 02/07/20 @ 20:00 by Dina Alcala PA-C) Gender Identity: Gender identity (if verbalized by the patient): Male Alcohol Use: Alcohol intake: never Substance Use: Substance use: current Other substance usage details: THC Others: Spiritual care concerns: No Smoking Status: Smoking status: Current every day smoker Tobacco type: e-cigarettes/vaping Meds Home Medications Medication Instructions Recorded Confirmed Type pantoprazole [Protonix] 40 mg PO QAM 28 Days #28 tablet 03/19/19 02/07/20 Rx docusate sodium [Colace] 100 mg PO DAILY 03/29/19 02/07/20 History prochlorperazine maleate 10 mg PO Q6H PRN 01/03/20 02/07/20 History [Compazine] apixaban [Eliquis] 5 mg PO BID 01/15/20 02/07/20 History diphenoxylate-atropine [Lomotil] 1 tablet PO QID PRN 02/05/20 02/07/20 History megestrol 400 mg PO DAILY 02/05/20 02/07/20 History oxycodone-acetaminophen [Percocet] 1 tablet PO Q6H PRN 02/07/20 02/07/20 History potassium chloride [Klor-Con M20] 20 meq PO DAILY 02/07/20 02/07/20 History pregabalin 75 mg PO Q12H 02/07/20 02/07/20 History Allergies Allergy/AdvReac Type Severity Reaction Status Date / Time No Known Allergies Allergy Verified 01/01/20 10:01 Results - Labs CBC & Chem 7: 02/08/20 04:18 02/08/20 04:18 Labs: Short CBC 02/08/20 Range/Units 04:18 WBC 20.8 H (4.5-10.0) K/mm3 Hgb 10.6 L (14.0-18.0) g/dL Hct 32.7 L (42.0-52.0) % Plt Count 407 H (150-375) k/mm3 BMP 02/08/20 04:18 Sodium 136 L Potassium 4.6 Chloride 106 Carbon Dioxide 27 BUN 23 H Creatinine 0.80 Glucose 105 Calcium 8.8 Liver Function 02/08/20 Range/Units 04:18 Total Bilirubin 1.0 (0.2-1.3) mg/dL AST 198 H (17-59) U/L ALT
[2020-02-08] MEDS: NOREPINEPHRINE 8 MG/D5W 250 ML 8 MG/250 ML BAG 5.6 MG IV CONT (22:30)
[2020-02-09] VITALS (21 sets, daily range): BP systolic 93–120; BP diastolic 51–75; PULSE 82–105; RESP 16–26; TEMP 36.1–37.2; O2SAT 91–99
[2020-02-09] MEDS: CENTRAL LINE FLUSH 10 ML IV PUSH ×2 (05:25→22:19)
[2020-02-09 07:19] LABS: Basophils Percent Auto 0.2 % (0.2-1.2); Eosinophils Absolute Auto 0.1 K/mm3 (0-0.3); Eosinophils Percent Auto 0.4 % (0-4.4); Hematocrit 29.3 % (42.0-52.0); Hemoglobin 9.7 g/dL (14.0-18.0); Immature Granulocyte Absolute 0.27 K/mm3 (0.00-0.031); Immature Granulocyte Percent A 1.4 % (0-0.5); Lymphocytes Absolute Auto 2.24 K/mm3 (0.9-3.2); Lymphocytes Percent Auto 11.9 % (18.3-44.2); Mean Corpuscular HGB Conc 33.1 g/dl (32-36); Mean Corpuscular Hemoglobin 30.7 pg (26-34); Mean Corpuscular Volume 92.7 fl (80-100); Mean Platelet Volume 10.8 fl (7.4-10.4); Monocytes Absolute Auto 0.3 K/mm3 (0.1-0.6); Monocytes Percent Auto 1.6 % (2.6-8.5); Neutrophils Absolute Auto 15.9 K/mm3 (1.3-6.7); Neutrophils Percent Auto 84.5 % (45.5-73.1); Platelet Count Result 251 k/mm3 (150-375); Red Blood Count 3.16 M/mm3 (4.6-6.20); Red Cell Distribution Width 18.9 % (11.5-14.5); White Blood Count 18.8 K/mm3 (4.5-10.0)
[2020-02-09 07:31] LABS: Lactic Acid Reflex 1.1 mmol/L (0.7-2.1)
[2020-02-09 07:38] LABS: Alanine Aminotransferase 42 U/L (4-50); Albumin Level 2.5 g/dL (3.5-5.1); Alkaline Phosphatase 336 U/L (38-126); Anion Gap 1 mmol/L (8-16); Aspartate Amino Transferase 174 U/L (17-59); Bilirubin,Total 1.6 mg/dL (0.2-1.3); Blood Urea Nitrogen 16 mg/dL (9-20); Calcium 8.3 mg/dL (8.4-10.2); Carbon Dioxide 27 mmol/L (22-30); Chloride 104 mmol/L (98-107); Estimated CRCL calculation 85 ml/min; Estimated Glomerular Filt Rate > 60; Glucose 98 mg/dL (75-110); Magnesium 2.3 mg/dL (1.6-2.3); Phosphorus 2.8 mg/dL (2.5-4.5); Sodium 132 mmol/L (137-145)
[2020-02-09 07:45] LABS: CRP 16.7 mg/dL (<1.0)
[2020-02-09] MEDS: PREGABALIN (*CRX) 75 MG CAPSULE PO ×2 (08:47→20:38)
[2020-02-09] MEDS: POTASSIUM CHLORIDE 20 MEQ TABLET.ER PO (08:48)
[2020-02-09] MEDS: DOCUSATE SODIUM 100 MG CAPSULE PO (08:48)
[2020-02-09] MEDS: APIXABAN 5 MG TABLET PO ×2 (08:49→18:40)
[2020-02-09] MEDS: PANTOPRAZOLE 40 MG TABLET PO (08:49)
[2020-02-09] MEDS: MEGESTROL ACETATE (*CHEMO) ORAL SUSP 40 MG/ML SYR 400 MG PO (08:49)
--- NOTE | 2020-02-09 10:42 | WPDINTPN ---
Progress Note: A&P Assessment and Plan (1) Septic shock: Code(s): A41.9 - Sepsis, unspecified organism; R65.21 - Severe sepsis with septic shock Status: Acute Assessment and Plan: septic shock, unknown etiology. UA was unremarkable - On Levophed. Maintain MAP > 65 mmHg - continue cefepime and Vancomycin - blood cultures with no growth so far 2/2 bottles - CT abdomen/pelvis shows stable liver metastases. Urinalysis is not consistent with a UTI.CXR with no acute cardiopulmonary disease (2) Esophageal cancer, stage IV: Onset Date: ~03/2019 Code(s): C15.9 - Malignant neoplasm of esophagus, unspecified Status: Acute Assessment and Plan: patient with history of esophageal cancer with Mets to the liver -follows with Dr. Upton (3) Anemia: Qualifiers: Anemia type: other cause Other causes of anemia: other cause, not classified Qualified Code(s): D64.89 - Other specified anemias Code(s): D64.9 - Anemia, unspecified Status: Acute Assessment and Plan: anemia likely related to chemotherapy/ malignancy/ anemia of chronic disease - hemoglobin stable at this time, will continue to monitor (4) Protein calorie malnutrition: Qualifiers: Protein-calorie malnutrition severity: moderate Qualified Code(s): E44.0 - Moderate protein-calorie malnutrition Code(s): E46 - Unspecified protein-calorie malnutrition Status: Acute Assessment and Plan: protein calorie malnutrition likely due to decrease in oral intake secondary esophageal cancer - will have dietitian / library clerical assistant evaluate the patient (5) Chemotherapy-induced neuropathy: Code(s): G62.0 - Drug-induced polyneuropathy; T45.1X5A - Adverse effect of antineoplastic and immunosuppressive drugs, initial encounter Status: Acute Assessment and Plan: continue Lyrica (6) Right leg DVT: Code(s): I82.401 - Acute embolism and thrombosis of unspecified deep veins of right lower extremity Status: Acute Assessment and Plan: continue Eliquis Additional Plan discussed with patient at length and updated with his condition plan of care. I answered all questions code status: Full code critical care time spent: 32 minutes Due to a high probability of clinically significant, life threatening deterioration, the patient required my highest level of preparedness to intervene emergently and I personally spent this critical care time directly and personally managing the patient. This critical care time included obtaining a history; examining the patient; pulse oximetry; ordering and review of studies; arranging urgent treatment with development of a management plan; evaluation of patient's response to treatment; frequent reassessment; and discussions with other providers. It was exclusive of separately billable procedures and treating other patients and teaching time. Please see Assessment and Plan section and the rest of the note for further information on patient assessment and treatment Subjective Date/time seen: 02/09/20 10:42 Interval history: Reason for consult: septic shock, weakness and lethargy dehydration 02/09/2020: Patient seen and examined this morning in the ICU, remains on Levophed at 1 mcg/min. urine output has been very good, patient is afebrile. patient is awake, alert, oriented x3, answers to questions appropriately. Denies any chest pain, shortness with abdominal pain, nausea vomiting at this time. Patient has had good oral intake Review of Systems Review of Systems: All systems reviewed & are unremarkable except as noted in HPI and below Exam Const: General: comfortable and no acute distress HENMT: Mouth: Yes moist mucous membranes Eyes: Sclera: sclerae normal Pupils: Equal, round and reactive pupils present Neck: Neck: supple Resp: Effort & Inspection: normal respiratory effort Auscultation: clear to auscultatio
--- NOTE | 2020-02-09 14:50 | P.PNONC_ITS ---
Progress Note: A/P - Additional Plan Metastatic esophageal cancer with lung and liver involvement. Further chemotherapy will be continued once patient improved as an outpatient. Septic shock. Patient is clinically improving. Blood cultures are pending. Continue current antibiotic. Blood pressure has improved and off the pressors now. Anemia. Hemoglobin is stable. - Time Spent With Patient Total time spent is greater than 50% in coordination of care (as documented) at patient's floor/unit and/or counseling patient: 15 - 25 minutes Subjective Interval history: Metastatic esophageal cancer Septic shock Review of Systems - Review of Systems Patient is slowly improving and looking more awake and stronger today. He denies any abdominal pain had 1 episode of diarrhea today. Denies any fevers a nd chills. He just started eating better. No bleeding. No nausea vomiting. Exam Vital signs: Temp Pulse Resp BP Pulse Ox 36.6 C 96 25 H 99/66 L 97 02/09/20 12:00 02/09/20 13:40 02/09/20 13:40 02/09/20 13:40 02/09/20 13:40 Narrative: Lungs are clear to auscultation bilaterally Cardiovascular regular rate rhythm no murmurs Abdomen soft nontender nondistended bowel sounds are positive Extremities no edema - Routine Cardiovascular Exam Cardiovascular: Present: RRR PN: Objective Data - Labs CBC & Chem 7: 02/09/20 07:09 02/09/20 07:09 Labs: Laboratory Results - last 24 hr 02/09/20 02/09/20 02/09/20 07:09 07:09 07:09 WBC 18.8 H RBC 3.16 L Hgb 9.7 L Hct 29.3 L MCV 92.7 MCH 30.7 MCHC 33.1 RDW 18.9 H Plt Count 251 MPV 10.8 H Immature Gran % (Auto) 1.4 H Neut % (Auto) 84.5 H Lymph % (Auto) 11.9 L [place] % (Auto) 1.6 L Eos % (Auto) 0.4 Baso % (Auto) 0.2 Lymph # (Auto) 2.24 [place] # (Auto) 0.3 Eos # (Auto) 0.1 Baso # (Auto) 0.0 Abs Immat Gran (auto) 0.27 H Absolute Neuts (auto) 15.9 H Absolute Nucleated RBC 0.0 Nucleated RBC % 0.0 Sodium 132 L Potassium 4.0 Chloride 104 Carbon Dioxide 27 Anion Gap 1 L BUN 16 Creatinine 0.70 Estim Creat Clear Calc 85 Estimated GFR > 60 Glucose 98 Lactic Acid 1.1 Calcium 8.3 L Phosphorus 2.8 Magnesium 2.3 Total Bilirubin 1.6 H AST 174 H ALT 42 Alkaline Phosphatase 336 H C-Reactive Protein 16.7 H Total Protein 5.0 L Albumin 2.5 L
--- NOTE | 2020-02-09 16:19 | PM.IMPN ---
Progress Note: A&P Assessment and Plan (1) Septic shock: Code(s): A41.9 - Sepsis, unspecified organism; R65.21 - Severe sepsis with septic shock Status: Acute Assessment and Plan: 02/09/20 16:20 patient is 64-year-old male with history of esophageal cancer patient had been at his oncologist office and received chemotherapy, it was noticed that patient blood pressure was low and he was sent to emergency department for further evaluation, upon arrival to emergency depart patient was hypotensive, had been complaint of poor appetite, fatigue weakness and tired, however patient does not have any associated symptoms of abdominal pain nausea or vomiting fever or chills, in the emergency department patient he was hydrated with 30ml/kg fluid bolus, suspect the patient may septic shock he has been started on cefepime and vancomycin, blood culture have been ordered. today on 02/08 patient stats he is doing better denies any chest pain shortness of breath palpitation fever or chills, discussed with pre sales architect he is off Levophed and his blood pressure is stable, his blood culture still no growth, his clinically stable will continue to monitor appreciate pre sales architect, patient is seen oncologist and further recommendation to follow. (2) Esophageal cancer, stage IV: Onset Date: ~03/2019 Code(s): C15.9 - Malignant neoplasm of esophagus, unspecified Status: Acute Assessment and Plan: patient seen by oncology and receiving chemotherapy he will be seen by oncologist and further recommendation to follow (3) Anemia: Qualifiers: Anemia type: other cause Other causes of anemia: other cause, not classified Qualified Code(s): D64.89 - Other specified anemias Code(s): D64.9 - Anemia, unspecified Status: Acute Assessment and Plan: most likely secondary to chemotherapy will continue to monitor (4) Dehydration: Code(s): E86.0 - Dehydration Status: Acute Assessment and Plan: patient is being hydrated will continue to monitor kidney function (5) Protein calorie malnutrition: Qualifiers: Protein-calorie malnutrition severity: moderate Qualified Code(s): E44.0 - Moderate protein-calorie malnutrition Code(s): E46 - Unspecified protein-calorie malnutrition Status: Acute Assessment and Plan: patient will benefit from dietary consult Subjective Date/time seen: 02/09/20 16:20 patient is 64-year-old male with history of esophageal cancer patient had been at his oncologist office and received chemotherapy, it was noticed that patient blood pressure was low and he was sent to emergency department for further evaluation, upon arrival to emergency depart patient was hypotensive, had been complaint of poor appetite, fatigue weakness and tired, however patient does not have any associated symptoms of abdominal pain nausea or vomiting fever or chills, in the emergency department patient he was hydrated with 30ml/kg fluid bolus, suspect the patient may septic shock he has been started on cefepime and vancomycin, blood culture have been ordered. today on 02/08 patient stats he is doing better denies any chest pain shortness of breath palpitation fever or chills, discussed with pre sales architect he is off Levophed and his blood pressure is stable, his blood culture still no growth, his clinically stable will continue to monitor appreciate pre sales architect, patient is seen oncologist and further recommendation to follow. Review of Systems Review of Systems: All systems reviewed & are unremarkable except as noted in HPI and below Exam Narrative: Exam Narrative: appears chronically ill malnourished Const: General: no acute distress and uncomfortable HENMT: General nose exam: Normal nares present Eyes: Sclera: sclerae normal Neck: Neck: supple Resp: Effort & Inspection: normal respiratory effort Auscultation: clear to auscultation bilaterally
[2020-02-09 21:01] LABS: Vancomycin Trough < 5.0 ug/mL (10.0-20.0)
--- NOTE | 2020-02-09 21:08 | PC.NURSE ---
This patient, Waqas Douglas, was received from ICU-10 on 02/09/20 at 2055. Report received from EVELYN Alves. Personal belongings list checked and signed. Patient/family oriented to unit policies and routines
--- NOTE | 2020-02-09 21:11 | ADMIMU ---
This patient, Waqas Douglas, was transferred to IMU status, and placed in IMU Room 200-01. Patient/family oriented to hospital policies and general routines including ID bracelet, bed and alarms, visiting hours, pain management, procedures, bathroom and other care routines, personal items, smoking policy, room service/diet, and visiting hours. Valuables list has been completed. Information on how to activate the Rapid Response Team has been discussed. Patient/Family are encouraged to report perceived risks to care and to ask questions if they do not understand what they are told or what they should do.
[2020-02-09] MEDS: oxyCODONE/ACETAMINOPHEN (*CRX) 5-325 MG TABLET 1 TABLET PO (22:29)
[2020-02-10] VITALS (18 sets, daily range): BP systolic 88–99; BP diastolic 56–63; PULSE 74–100; RESP 16–24; TEMP 35.8–36.6; O2SAT 91–100
[2020-02-10] MEDS: CENTRAL LINE FLUSH 10 ML IV PUSH ×3 (06:05→22:32)
[2020-02-10] MEDS: PANTOPRAZOLE 40 MG TABLET PO (08:52)
[2020-02-10] MEDS: MEGESTROL ACETATE (*CHEMO) ORAL SUSP 40 MG/ML SYR 400 MG PO (08:52)
[2020-02-10] MEDS: APIXABAN 5 MG TABLET PO ×2 (08:52→16:52)
[2020-02-10] MEDS: POTASSIUM CHLORIDE 20 MEQ TABLET.ER PO (08:52)
[2020-02-10] MEDS: DOCUSATE SODIUM 100 MG CAPSULE PO (08:52)
[2020-02-10] MEDS: PREGABALIN (*CRX) 75 MG CAPSULE PO ×2 (08:54→20:53)
--- NOTE | 2020-02-10 15:45 | PM.IMPN ---
Progress Note: A&P Assessment and Plan (1) Septic shock: Code(s): A41.9 - Sepsis, unspecified organism; R65.21 - Severe sepsis with septic shock Status: Acute Assessment and Plan: 02/10/20 15:45 patient is 64-year-old male with history of esophageal cancer patient had been at his oncologist office and received chemotherapy, it was noticed that patient blood pressure was low and he was sent to emergency department for further evaluation, upon arrival to emergency depart patient was hypotensive, had been complaint of poor appetite, fatigue weakness and tired, however patient does not have any associated symptoms of abdominal pain nausea or vomiting fever or chills, in the emergency department patient he was hydrated with 30ml/kg fluid bolus, suspect the patient may septic shock he has been started on cefepime and vancomycin, blood culture have been ordered. on 02/08 patient was off levophed, and transferred out of ICU to IMU, today on 02/09 patient stats he is doing better denies any chest pain shortness of breath palpitation fever or chills, he is eating his lunch, his is present in the room, blood culture still no growth, if the patient remains clinically stable and there is no bacterial growth blood culture by Wednesday, will discharge the patient home (2) Esophageal cancer, stage IV: Onset Date: ~03/2019 Code(s): C15.9 - Malignant neoplasm of esophagus, unspecified Status: Acute Assessment and Plan: patient seen by oncology and receiving chemotherapy he will be seen by oncologist and further recommendation to follow (3) Anemia: Qualifiers: Anemia type: other cause Other causes of anemia: other cause, not classified Qualified Code(s): D64.89 - Other specified anemias Code(s): D64.9 - Anemia, unspecified Status: Acute Assessment and Plan: most likely secondary to chemotherapy will continue to monitor (4) Dehydration: Code(s): E86.0 - Dehydration Status: Acute Assessment and Plan: patient is being hydrated will continue to monitor kidney function (5) Protein calorie malnutrition: Qualifiers: Protein-calorie malnutrition severity: moderate Qualified Code(s): E44.0 - Moderate protein-calorie malnutrition Code(s): E46 - Unspecified protein-calorie malnutrition Status: Acute Assessment and Plan: patient will benefit from dietary consult Subjective Date/time seen: 02/10/20 15:45 patient is 64-year-old male with history of esophageal cancer patient had been at his oncologist office and received chemotherapy, it was noticed that patient blood pressure was low and he was sent to emergency department for further evaluation, upon arrival to emergency depart patient was hypotensive, had been complaint of poor appetite, fatigue weakness and tired, however patient does not have any associated symptoms of abdominal pain nausea or vomiting fever or chills, in the emergency department patient he was hydrated with 30ml/kg fluid bolus, suspect the patient may septic shock he has been started on cefepime and vancomycin, blood culture have been ordered. on 02/08 patient was off levophed, and transferred out of ICU to IMU, today on 02/09 patient stats he is doing better denies any chest pain shortness of breath palpitation fever or chills, he is eating his lunch, his is present in the room, blood culture still no growth, if the patient remains clinically stable and there is no bacterial growth blood culture by Wednesday, will discharge the patient home Review of Systems Review of Systems: All systems reviewed & are unremarkable except as noted in HPI and below Exam Narrative: Exam Narrative: appears chronically ill malnourished Const: General: no acute distress and uncomfortable HENMT: General nose exam: Normal nares present Eyes: Sclera: sclerae normal Neck: Neck: supple Resp: Effort & Inspection: normal r
[2020-02-11] VITALS (15 sets, daily range): BP systolic 91–100; BP diastolic 57–65; PULSE 74–101; RESP 16–20; TEMP 35.9–36.7; O2SAT 99–100
[2020-02-11] MEDS: CENTRAL LINE FLUSH 10 ML IV PUSH ×3 (06:00→21:02)
[2020-02-11 06:35] LABS: Hematocrit 24.7 % (42.0-52.0); Hemoglobin 8.2 g/dL (14.0-18.0); Mean Corpuscular HGB Conc 33.2 g/dl (32-36); Mean Corpuscular Volume 90.5 fl (80-100); Mean Platelet Volume 11.6 fl (7.4-10.4); Platelet Count Result 172 k/mm3 (150-375); Red Blood Count 2.73 M/mm3 (4.6-6.20); Red Cell Distribution Width 18.9 % (11.5-14.5); White Blood Count 9.5 K/mm3 (4.5-10.0)
[2020-02-11 06:48] LABS: Alanine Aminotransferase 33 U/L (4-50); Albumin Level 2.4 g/dL (3.5-5.1); Alkaline Phosphatase 267 U/L (38-126); Anion Gap 1 mmol/L (8-16); Aspartate Amino Transferase 94 U/L (17-59); Bilirubin,Total 1.2 mg/dL (0.2-1.3); Blood Urea Nitrogen 15 mg/dL (9-20); Calcium 7.9 mg/dL (8.4-10.2); Carbon Dioxide 26 mmol/L (22-30); Chloride 107 mmol/L (98-107); Estimated CRCL calculation 98 ml/min; Estimated Glomerular Filt Rate > 60; Glucose 84 mg/dL (75-110); Magnesium 2.4 mg/dL (1.6-2.3); Potassium 4.3 mmol/L (3.4-5.0); Sodium 134 mmol/L (137-145)
[2020-02-11] MEDS: PREGABALIN (*CRX) 75 MG CAPSULE PO ×2 (08:25→21:02)
[2020-02-11] MEDS: POTASSIUM CHLORIDE 20 MEQ TABLET.ER PO (08:26)
[2020-02-11] MEDS: MEGESTROL ACETATE (*CHEMO) ORAL SUSP 40 MG/ML SYR 400 MG PO (08:26)
[2020-02-11] MEDS: PANTOPRAZOLE 40 MG TABLET PO (08:26)
[2020-02-11] MEDS: APIXABAN 5 MG TABLET PO ×2 (08:26→16:47)
[2020-02-11] MEDS: DOCUSATE SODIUM 100 MG CAPSULE PO (08:26)
[2020-02-11 11:53] LABS: Vancomycin Trough 11.6 ug/mL (10.0-20.0)
--- NOTE | 2020-02-11 12:50 | PM.IMPN ---
Progress Note: A&P Assessment and Plan (1) Septic shock: Code(s): A41.9 - Sepsis, unspecified organism; R65.21 - Severe sepsis with septic shock Status: Acute Assessment and Plan: 02/11/20 12:50 patient is 64-year-old male with history of esophageal cancer patient had been at his oncologist office and received chemotherapy, it was noticed that patient blood pressure was low and he was sent to emergency department for further evaluation, upon arrival to emergency depart patient was hypotensive, had been complaint of poor appetite, fatigue weakness and tired, however patient does not have any associated symptoms of abdominal pain nausea or vomiting fever or chills, in the emergency department patient he was hydrated with 30ml/kg fluid bolus, suspect the patient may septic shock he has been started on cefepime and vancomycin, blood culture have been ordered. on 02/08 patient was off levophed, and transferred out of ICU to IMU, today on 02/10 patient stats he is doing better denies any chest pain shortness of breath palpitation fever or chills, he is laying the bed, blood culture still no growth, if the patient remains clinically stable and there is no bacterial growth blood culture by Wednesday, patient will be seen by Dr. Upton, will discharge the patient home (2) Esophageal cancer, stage IV: Onset Date: ~03/2019 Code(s): C15.9 - Malignant neoplasm of esophagus, unspecified Status: Acute Assessment and Plan: patient seen by oncology and receiving chemotherapy he will be seen by oncologist and further recommendation to follow (3) Anemia: Qualifiers: Anemia type: other cause Other causes of anemia: other cause, not classified Qualified Code(s): D64.89 - Other specified anemias Code(s): D64.9 - Anemia, unspecified Status: Acute Assessment and Plan: most likely secondary to chemotherapy will continue to monitor (4) Dehydration: Code(s): E86.0 - Dehydration Status: Acute Assessment and Plan: patient is being hydrated will continue to monitor kidney function (5) Protein calorie malnutrition: Qualifiers: Protein-calorie malnutrition severity: moderate Qualified Code(s): E44.0 - Moderate protein-calorie malnutrition Code(s): E46 - Unspecified protein-calorie malnutrition Status: Acute Assessment and Plan: patient will benefit from dietary consult Subjective Date/time seen: 02/11/20 12:50 patient is 64-year-old male with history of esophageal cancer patient had been at his oncologist office and received chemotherapy, it was noticed that patient blood pressure was low and he was sent to emergency department for further evaluation, upon arrival to emergency depart patient was hypotensive, had been complaint of poor appetite, fatigue weakness and tired, however patient does not have any associated symptoms of abdominal pain nausea or vomiting fever or chills, in the emergency department patient he was hydrated with 30ml/kg fluid bolus, suspect the patient may septic shock he has been started on cefepime and vancomycin, blood culture have been ordered. on 02/08 patient was off levophed, and transferred out of ICU to IMU, today on 02/10 patient stats he is doing better denies any chest pain shortness of breath palpitation fever or chills, he is laying the bed, blood culture still no growth, if the patient remains clinically stable and there is no bacterial growth blood culture by Wednesday, patient will be seen by Dr. Upton, will discharge the patient home Review of Systems Review of Systems: All systems reviewed & are unremarkable except as noted in HPI and below Exam Narrative: Exam Narrative: appears chronically ill malnourished Const: General: no acute distress and uncomfortable HENMT: General nose exam: Normal nares present Eyes: Sclera: sclerae normal Neck: Neck: supple Resp: Effort & Inspection:
[2020-02-12] VITALS (8 sets, daily range): BP systolic 90–102; BP diastolic 57–67; PULSE 74–91; RESP 16–18; TEMP 35.8–36.4; O2SAT 99–100
[2020-02-12 03:28] LABS: Hematocrit 26.5 % (42.0-52.0); Mean Corpuscular Hemoglobin 31.3 pg (26-34); Mean Platelet Volume 11.6 fl (7.4-10.4); Platelet Count Result 165 k/mm3 (150-375); Red Blood Count 2.88 M/mm3 (4.6-6.20); Red Cell Distribution Width 18.8 % (11.5-14.5); White Blood Count 12.7 K/mm3 (4.5-10.0)
[2020-02-12 03:40] LABS: Alanine Aminotransferase 35 U/L (4-50); Albumin Level 2.7 g/dL (3.5-5.1); Alkaline Phosphatase 316 U/L (38-126); Anion Gap 4 mmol/L (8-16); Aspartate Amino Transferase 98 U/L (17-59); Bilirubin,Total 1.1 mg/dL (0.2-1.3); Blood Urea Nitrogen 15 mg/dL (9-20); Calcium 8.1 mg/dL (8.4-10.2); Carbon Dioxide 25 mmol/L (22-30); Chloride 106 mmol/L (98-107); Estimated CRCL calculation 78 ml/min; Estimated Glomerular Filt Rate > 60; Glucose 94 mg/dL (75-110); Potassium 4.5 mmol/L (3.4-5.0); Sodium 135 mmol/L (137-145)
[2020-02-12] MEDS: CENTRAL LINE FLUSH 10 ML IV PUSH (05:26)
[2020-02-12] MEDS: POTASSIUM CHLORIDE 20 MEQ TABLET.ER PO (09:37)
[2020-02-12] MEDS: APIXABAN 5 MG TABLET PO (09:37)
[2020-02-12] MEDS: DOCUSATE SODIUM 100 MG CAPSULE PO (09:37)
[2020-02-12] MEDS: PANTOPRAZOLE 40 MG TABLET PO (09:37)
[2020-02-12] MEDS: PREGABALIN (*CRX) 75 MG CAPSULE PO (09:37)
[2020-02-12] MEDS: MEGESTROL ACETATE (*CHEMO) ORAL SUSP 40 MG/ML SYR 400 MG PO (09:37)
--- NOTE | 2020-02-12 10:10 | PM.DS ---
DS: Admitting Diagnosis Admitting Diagnosis Admitting Diagnosis: Weakness, low blood pressure. DS: Discharge Diagnosis Discharge Diagnosis (1) Septic shock: Code(s): A41.9 - Sepsis, unspecified organism; R65.21 - Severe sepsis with septic shock Status: Acute Assessment and Plan: 02/11/20 12:50 patient is 64-year-old male with history of esophageal cancer patient had been at his oncologist office and received chemotherapy, it was noticed that patient blood pressure was low and he was sent to emergency department for further evaluation, upon arrival to emergency depart patient was hypotensive, had been complaint of poor appetite, fatigue weakness and tired, however patient does not have any associated symptoms of abdominal pain nausea or vomiting fever or chills, in the emergency department patient he was hydrated with 30ml/kg fluid bolus, suspect the patient may septic shock he has been started on cefepime and vancomycin, blood culture have been ordered. on 02/08 patient was off levophed, and transferred out of ICU to IMU, today on 02/10 patient stats he is doing better denies any chest pain shortness of breath palpitation fever or chills, he is laying the bed, blood culture still no growth, if the patient remains clinically stable and there is no bacterial growth blood culture by Wednesday, patient will be seen by Dr. Upton, will discharge the patient home (2) Esophageal cancer, stage IV: Onset Date: ~03/2019 Code(s): C15.9 - Malignant neoplasm of esophagus, unspecified Status: Acute Assessment and Plan: patient seen by oncology and receiving chemotherapy he will be seen by oncologist and further recommendation to follow (3) Anemia: Qualifiers: Anemia type: other cause Other causes of anemia: other cause, not classified Qualified Code(s): D64.89 - Other specified anemias Code(s): D64.9 - Anemia, unspecified Status: Acute Assessment and Plan: most likely secondary to chemotherapy will continue to monitor (4) Dehydration: Code(s): E86.0 - Dehydration Status: Acute Assessment and Plan: patient is being hydrated will continue to monitor kidney function (5) Protein calorie malnutrition: Qualifiers: Protein-calorie malnutrition severity: moderate Qualified Code(s): E44.0 - Moderate protein-calorie malnutrition Code(s): E46 - Unspecified protein-calorie malnutrition Status: Acute Assessment and Plan: patient will benefit from dietary consult DS: Summary Hospital Course Reason for hospitalization: Waqas Douglas is with a pleasant 64-year-old male currently undergoing treatment for stage IV esophageal cancer with metastatic disease to the liver who presented to the emergency department earlier this afternoon from Dr. Upton office for evaluation of weakness and hypotension. It sounds as though he receives continuous chemotherapy via infusion, which is started on Mondays and discontinued on Wednesdays. He went into the office today to have that discontinued, and at that time he was found to be quite hypotensive. With further questioning he has felt fair the past couple of days but does mention getting lightheaded quite often, mainly when bending over and with position changes. His appetite has also not been very good with some nausea, mild right side discomfort, and decreased oral intake. The discomfort in his right side is more of an ache, is intermittent, and seems to be an issue that has been occurring for quite some time. He has rhinorrhea which he believes to be a side effect of his chemotherapy and he also has an occasional cough which is very rarely productive of clear phlegm, which is attributed to the rhinorrhea and postnasal drip. He has not had diarrhea and in fact tends to have constipation. No dysuria, urgency, or urinary hesitancy. He has not had sinus congestion, otalgia, or odynophagia. Occasio
== END 2020-02-12 10:57 | disposition home or self-care (01) | DRG 871 ==
LOC: ANHED 17:11 → ANHICU 17:56 → ANHIMU 02-09 21:05
PROVIDERS: Internal Medicine; Physician Assistant; Admitting Provider Family Medicine; Emergency Provider Emergency Medicine; PCP Internal Medicine; Visit Provider Family Medicine
DX: A41.9 Sepsis, unspecified organism (principal); R65.21 Severe sepsis with septic shock; I82.401 Acute embolism and thrombosis of unspecified deep veins of right lower extremity; C15.9 Malignant neoplasm of esophagus, unspecified; C78.7 Secondary malignant neoplasm of liver and intrahepatic bile duct; C78.00 Secondary malignant neoplasm of unspecified lung; E44.0 Moderate protein-calorie malnutrition; Z68.25 Body mass index [BMI] 25.0-25.9, adult; G62.0 Drug-induced polyneuropathy; T45.1X5A Adverse effect of antineoplastic and immunosuppressive drugs, initial encounter; D64.81 Anemia due to antineoplastic chemotherapy; D63.8 Anemia in other chronic diseases classified elsewhere; R13.10 Dysphagia, unspecified; E86.0 Dehydration; F17.290 Nicotine dependence, other tobacco product, uncomplicated; K21.9 Gastro-esophageal reflux disease without esophagitis; Z79.01 Long term (current) use of anticoagulants; Z79.899 Other long term (current) drug therapy; Z86.010 Personal history of colon polyps
CPT/HCPCS: 36415; 70450; 71045; 74177; 80048; 80053; 80202; 81001; 83605; 83735; 84100; 84484; 85025; 85027; 85610; 85730; 86140; 87040; 93005; 96361; 96365; 96366; 96367; 99212; 99291; A9270; G0463; J0692; J1642; J3370; J7030; J7120; Q9967